=== PATIENT | female | born 1995 | race African-American/Black ===

== ENCOUNTER 2017-08-17 15:35 | Emergency (ER) | payer OTHER ==
[2017-08-17] MEDS ORDERED: IBUPROFEN 800 MG TAB PO (17:15)
== END 2017-08-17 17:23 | disposition home or self-care (01) ==
LOC: M ED 15:35
DX: M94.0 Chondrocostal junction syndrome [Tietze] (principal); R07.89 Other chest pain; Z79.899 Other long term (current) drug therapy
CPT/HCPCS: 93005